=== PATIENT | male | born 1970 | race Caucasian/White ===

== ENCOUNTER 2016-11-04 05:38 | Emergency (ER) | payer BC ==
[~2016-11-04] VITALS: Ht 180.3 cm; Wt 70.0 kg
[2016-11-04] MEDS ORDERED: OXYcodone/APAP 5/325MG TABLET PO ONE (06:30)
[2016-11-04] MEDS ORDERED: BACITRACIN ZINC OINT 500U/GM, 0.9 GM ONE (06:33)
[2016-11-04] MEDS ORDERED: OXYcodone/APAP 5/325MG TABLET ONE (06:34)
[2016-11-04] MEDS ORDERED: SODIUM CHLORIDE 0.9% 1,000ML IVBOLUS ONE (07:00)
[2016-11-04] MEDS ORDERED: SODIUM CHLORIDE FLUSH 10ML SYR IVF ONE (07:00)
[2016-11-04] MEDS ORDERED: MORPHINE SULFATE 4 MG/ML, 1ML IVPush PRN (07:00)
[2016-11-04 07:09] LABS: ASPARTATE AMINO TRANSFERASE 40 U/L (15-37); BLOOD UREA NITROGEN 16 mg/dL (7-18)
[2016-11-04 12:57] VITALS: BP 130/74
== END 2016-11-04 12:58 | disposition home or self-care (01) ==
LOC: ED 08:22
DX: S92.002A Unspecified fracture of left calcaneus, initial encounter for closed fracture (principal); S16.1XXA Strain of muscle, fascia and tendon at neck level, initial encounter; S39.012A Strain of muscle, fascia and tendon of lower back, initial encounter; S00.93XA Contusion of unspecified part of head, initial encounter; S90.411A Abrasion, right great toe, initial encounter; W10.8XXA Fall (on) (from) other stairs and steps, initial encounter; Y93.89 Activity, other specified; Y99.8 Other external cause status; Y92.89 Other specified places as the place of occurrence of the external cause
CPT/HCPCS: 29515; 36415; 70450; 71260; 72125; 73610; 73700; 74177; 80053; 85025; 85610; 96360; 96361; 99285; J7030